=== PATIENT | female | born 1970 | race Caucasian/White ===

== ENCOUNTER → 2017-11-06 | Outpatient (CLI) | payer BC ==
[~2017-11-06] MED LIST: APRESOLINE25 MG PO; CELEXA20 MG PO; MOTRIN800 MG PO; NASONEX0.05 MG/AC NAS
== END ==
LOC: MAMMO 17:16
DX: Z12.31 Encounter for screening mammogram for malignant neoplasm of breast (principal)

== ENCOUNTER → 2017-11-13 | Outpatient (CLI) | payer BC | END | disposition home or self-care (01) | LOC: MAMMO 13:21 | DX: R92.8 Other abnormal and inconclusive findings on diagnostic imaging of breast (principal) ==

== ENCOUNTER → 2019-10-15 | Outpatient (CLI) | payer BC ==
[~2019-10-15] MED LIST changes: +NORVASC2.5 MG PO; +ZOLOFT25 MG PO
[2019-10-15 07:28] LABS: BASO % 0.4 % (0.0-1.0); EOS # 0.1 10*3/uL (0.0-0.4); EOS % 2.5 % (1.0-4.0); HEMATOCRIT 44.6 % (37.0-47.0); HEMOGLOBIN 15.4 g/dl (12.0-16.0); LYMPH # 1.2 10*3/uL (1.3-4.4); LYMPH % 25.8 % (27.0-41.0); MEAN CELL VOLUME 92.1 fl (81.0-99.0); MEAN CORPUSCULAR HGB 31.8 pg (27.0-31.0); MEAN CORPUSCULAR HGB CONC 34.5 g/dl (33.0-37.0); MEAN PLATELET VOLUME 9.2 fl (9.6-12.3); MONO # 0.4 10*3/uL (0.1-1.0); MONO % 9.1 % (3.0-9.0); NEUT # 2.9 10*3/uL (2.3-7.9); PLATELET COUNT AUTOMATED 276 10*3/uL (130-400); RED BLOOD COUNT 4.84 10*6/uL (4.10-5.10); RED CELL DISTRI WIDTH 11.9 % (0-14.5); WHITE BLOOD COUNT 4.7 10*3/uL (4.8-10.8)
[2019-10-15 08:07] LABS: ALBUMIN 3.9 gm/dl (3.1-4.5); ALKALINE PHOSPHATASE 121 U/L (45-117); BUN 15 mg/dl (7-24); CHLORIDE 109 mmol/L (98-107); CHOLESTEROL 190 mg/dL (<200); CREATININE 0.73 mg/dL (0.55-1.02); HDL CHOLESTEROL 52 mg/dl (40-60); LDL CHOLESTEROL 116 mg/dL (9-159); POTASSIUM 3.5 mmol/L (3.5-5.1); SGOT/AST 153 IU/L (3-35); SGPT/ALT 340 U/L (12-78); SODIUM 142 mmol/L (136-145); TOTAL PROTEIN 7.3 gm/dL (6.4-8.2); TRIGLYCERIDES 111 mg/dl (<150); VLDL CHOLESTEROL 22 mg/dL (6-40)
[2019-10-15 08:12] LABS: FREE T4 0.85 ng/dl (0.76-1.46)
[2019-10-15 09:04] LABS: VITAMIN D, 25-HYDROXY 76.2 ng/mL (30-100)
== END | disposition home or self-care (01) ==
LOC: LAB 06:14 → US 06:30
PROVIDERS: Internal Medicine
DX: R10.11 Right upper quadrant pain (principal); M54.6 Pain in thoracic spine; F17.200 Nicotine dependence, unspecified, uncomplicated; R06.02 Shortness of breath

== ENCOUNTER 2019-10-16 18:20 | Inpatient (IN) | payer BC ==
[~2019-10-16] VITALS: Ht 167.6 cm; Wt 77.2 kg
[~2019-10-16 18:20] MED LIST changes: -NORVASC2.5 MG PO; -ZOLOFT25 MG PO
--- NOTE | 2019-10-16 18:25 | NUR ---
Time: 1824 A 49 year old FEMALE admitted to under services of MARCY BURNETT MD. Pt. arrived via wheel chair from [place]. Chief complaint: DIRECT ADMIT FOR CHOLECYSTECTOMY. MARYANA CASTRO
[2019-10-16] MEDS ORDERED: ZOLOFT25 MG PO (18:40)
[2019-10-16] MEDS ORDERED: NORVASC2.5 MG PO (18:40)
[2019-10-16 20:00] VITALS: BP 130/70; BP 130/90
[2019-10-16 21:08] LABS: ALBUMIN 3.5 gm/dl (3.1-4.5); ALKALINE PHOSPHATASE 115 U/L (45-117); BILIRUBIN, DIRECT < 0.1 mg/dL (0.0-0.2); SGOT/AST 44 IU/L (3-35); SGPT/ALT 178 U/L (12-78); TOTAL PROTEIN 6.6 gm/dL (6.4-8.2)
[2019-10-17] VITALS: BP 132/81
--- NOTE | 2019-10-17 | NUR ---
PATIENT RESTING WITH EYES CLOSED. RESPIRATIONS EASY AND UNLABORED. CALL LIGHT WITHIN REACH. WILL MONITOR.
--- NOTE | 2019-10-17 02:00 | NUR ---
PATIENT RESTING WITH EYES CLOSED. RESPIRATIONS EASY AND UNLABORED. CALL LIGHT IN REACH. WILL MONITOR.
[2019-10-17 07:01] LABS: ALBUMIN 3.4 gm/dl (3.1-4.5); ALKALINE PHOSPHATASE 97 U/L (45-117); BILIRUBIN, DIRECT < 0.1 mg/dL (0.0-0.2); SGPT/ALT 164 U/L (12-78); TOTAL PROTEIN 6.7 gm/dL (6.4-8.2)
[2019-10-17 07:07] LABS: SGOT/AST 46 IU/L (3-35)
[2019-10-17 08:00] VITALS: BP 142/90
--- NOTE | 2019-10-17 09:00 | NUR ---
[employer] in to talk to patient. Patient states lives at home with her and 2 daughters. There are 2 steps in the home. Physician: Dr. Celeste Ruelas [facility] health services: none Patient's level of ADLs: INDEPENDENT Patient has working utilities: yes DME: none Follow-up physician's appointment after d/c: she prefers to make her own follow up appt after discharge Does patient want to access PORTAL?: no Discharge plan discussed with patient. She lives at home with her and 2 daughters. She is independent in her ADLs and ambulation. Discussed home health care services and she denies any home needs. When medically stable she will be discharged to home. She is scheduled for an ERCP today. Her will provide transportation on discharge. OFELIA GARNETT
--- NOTE | 2019-10-17 09:25 | NUR ---
PT TAKEN OFF FLOOR FOR MRCP.
[2019-10-17 12:00] VITALS: BP 136/88
--- NOTE | 2019-10-17 14:31 | NUR ---
Discharge instructions reviewed with patient/family. Patient receptive and verbalizes understanding. Follow-up care arranged. Written instructions given to patient/family. HEPLOCK DISCONTINUED. ADVISED PT TO SEE HIM IN OFFICE THIS WEEK TO SCHEDULE OUTPATIENT PROCEDURE. MARYANA CASTRO
[2019-10-21] MEDS ORDERED: MULTI-VITAMIN1 EACH PO (13:29)
[2019-10-21] MEDS ORDERED: VITAMIN D32000 UNI1 PO (13:29)
[2019-10-23] MEDS ORDERED: PERCOCET 5-3251 EACH PO (11:26)
== END 2019-10-17 14:30 | disposition home or self-care (01) | DRG 446 ==
LOC: 5E 18:20
PROVIDERS: Internal Medicine Gastroenterology; ADMIT Internal Medicine
DX: K80.80 Other cholelithiasis without obstruction (principal); F32.9 Major depressive disorder, single episode, unspecified; I10 Essential (primary) hypertension; R74.0 Nonspecific elevation of levels of transaminase and lactic acid dehydrogenase [LDH]; Z79.899 Other long term (current) drug therapy

== ENCOUNTER → 2019-10-23 | Day surgery (SDC) | payer BC ==
[2019-10-22 15:58] LABS: BILIRUBIN NEGATIVE (NEGATIVE); BLOOD NEGATIVE (NEGATIVE); CLARITY CLEAR (CLEAR); COLOR YELLOW (YELLOW); GLUCOSE NEGATIVE (NEGATIVE); KETONE NEGATIVE (NEGATIVE); LEUKO ESTERASE 1+ (NEGATIVE); NITRITE NEGATIVE (NEGATIVE); PH 5.5 (5.0-9.0); SPECIFIC GRAVITY >= 1.030 (1.005-1.030); UROBILINOGEN 0.2 E.U./dl (0.2-1.0)
[2019-10-22 16:05] LABS: BACTERIA 1+; EPITHELIAL CELLS TNTC; MUCOUS 2+
[2019-10-22 16:08] LABS: ACT PARTIAL THROMBO TIME 26.4 SECONDS (20.0-32.1)
[~2019-10-23] VITALS: Ht 167.6 cm; Wt 77.1 kg
[~2019-10-23] MED LIST changes: +MULTI-VITAMIN1 EACH PO; +NORVASC2.5 MG PO; +PERCOCET 5-3251 EACH PO; +VITAMIN D32000 UNI1 PO; +ZOLOFT25 MG PO
[2019-10-23 09:20] VITALS: BP 129/83
[2019-10-23 11:35] VITALS: BP 139/80
[2019-10-23 11:50] VITALS: BP 134/84
[2019-10-23 12:05] VITALS: BP 132/84
[2019-10-23 12:20] VITALS: BP 138/80
[2019-10-23 12:35] VITALS: BP 132/78
== END | disposition home or self-care (01) ==
LOC: SDC 10-21 08:45
PROVIDERS: Surgery
DX: K80.10 Calculus of gallbladder with chronic cholecystitis without obstruction (principal); I10 Essential (primary) hypertension; F32.9 Major depressive disorder, single episode, unspecified; F41.9 Anxiety disorder, unspecified; F17.210 Nicotine dependence, cigarettes, uncomplicated; Z79.899 Other long term (current) drug therapy; Z98.890 Other specified postprocedural states; Z82.49 Family history of ischemic heart disease and other diseases of the circulatory system

== ENCOUNTER → 2020-03-26 | Outpatient (CLI) | payer BC | END | disposition home or self-care (01) | LOC: US 12:06 | DX: M48.061 Spinal stenosis, lumbar region without neurogenic claudication (principal); M41.86 Other forms of scoliosis, lumbar region ==

== ENCOUNTER → 2020-11-16 | Outpatient (CLI) | payer BC | END | disposition home or self-care (01) | LOC: MAMMO 15:50 | PROVIDERS: ATTEND Internal Medicine | DX: Z12.31 Encounter for screening mammogram for malignant neoplasm of breast (principal); N63.24 Unspecified lump in the left breast, lower inner quadrant; N64.89 Other specified disorders of breast ==

== ENCOUNTER → 2020-12-01 | Outpatient (CLI) | payer BC ==
[2020-12-01 10:38] LABS: BASO % 0.2 % (0.0-1.0); EOS % 0.2 % (1.0-4.0); HEMATOCRIT 45.6 % (37.0-47.0); LYMPH # 1.4 10*3/uL (1.3-4.4); LYMPH % 23.7 % (27.0-41.0); MEAN CELL VOLUME 90.5 fl (81.0-99.0); MEAN CORPUSCULAR HGB CONC 34.2 g/dl (33.0-37.0); MEAN PLATELET VOLUME 9.5 fl (9.6-12.3); MONO # 0.4 10*3/uL (0.1-1.0); MONO % 6.4 % (3.0-9.0); NEUT # 4.1 10*3/uL (2.3-7.9); NEUT % 69.2 % (47.0-73.0); PLATELET COUNT AUTOMATED 311 10*3/uL (130-400); RED BLOOD COUNT 5.04 10*6/uL (4.10-5.10); RED CELL DISTRI WIDTH 12.1 % (0-14.5)
[2020-12-01 11:10] LABS: ALKALINE PHOSPHATASE 88 U/L (45-117); BUN 17 mg/dl (7-24); CHLORIDE 105 mmol/L (98-107); CHOLESTEROL 222 mg/dL (<200); CREATININE 0.73 mg/dL (0.55-1.02); FREE T4 0.89 ng/dl (0.76-1.46); HDL CHOLESTEROL 50 mg/dl (40-60); LDL CHOLESTEROL 150 mg/dL (9-159); POTASSIUM 3.6 mmol/L (3.5-5.1); SGOT/AST 17 IU/L (3-35); SGPT/ALT 23 U/L (12-78); SODIUM 139 mmol/L (136-145); TOTAL PROTEIN 7.3 gm/dL (6.4-8.2); TRIGLYCERIDES 108 mg/dl (<150); VLDL CHOLESTEROL 22 mg/dL (6-40)
[2020-12-01 14:31] LABS: VITAMIN D, 25-HYDROXY 30.8 ng/mL (30-100)
== END | disposition home or self-care (01) ==
LOC: LAB 09:46 → US 10:00 → MAMMO 10:00
PROVIDERS: ATTEND Internal Medicine
DX: N60.02 Solitary cyst of left breast (principal); I10 Essential (primary) hypertension; E55.9 Vitamin D deficiency, unspecified; Z13.1 Encounter for screening for diabetes mellitus; Z13.21 Encounter for screening for nutritional disorder; Z13.220 Encounter for screening for lipoid disorders; Z00.00 Encounter for general adult medical examination without abnormal findings

== ENCOUNTER → 2022-01-02 | Outpatient (CLI) | payer BC ==
[~2022-01-02] MED LIST changes: +MELOXICAM15 MG PO; +METOPROLOL25 MG PO; +TRAZODONE100 MG PO
== END | disposition home or self-care (01) ==
LOC: CARD 00:01
PROVIDERS: ATTEND Internal Medicine
DX: R07.89 Other chest pain (principal); R06.02 Shortness of breath

== ENCOUNTER → 2023-02-03 | Outpatient (CLI) | payer OTHER ==
[2023-02-03 08:55] LABS: BASO % 0.4 % (0.0-1.0); EOS # 0.1 10*3/uL (0.0-0.4); EOS % 1.2 % (1.0-4.0); HEMATOCRIT 44.2 % (37.0-47.0); LYMPH # 1.4 10*3/uL (1.3-4.4); MEAN CELL VOLUME 87.9 fl (81.0-99.0); MEAN CORPUSCULAR HGB 30.6 pg (27.0-31.0); MEAN CORPUSCULAR HGB CONC 34.8 g/dl (33.0-37.0); MEAN PLATELET VOLUME 9.4 fl (9.6-12.3); MONO # 0.4 10*3/uL (0.1-1.0); MONO % 7.5 % (3.0-9.0); NEUT # 3.2 10*3/uL (2.3-7.9); NEUT % 62.5 % (47.0-73.0); PLATELET COUNT AUTOMATED 289 10*3/uL (130-400); RED BLOOD COUNT 5.03 10*6/uL (4.10-5.10); RED CELL DISTRI WIDTH 12.1 % (0-14.5); WHITE BLOOD COUNT 5.1 10*3/uL (4.8-10.8)
[2023-02-03 09:15] LABS: ALKALINE PHOSPHATASE 96 U/L (46-116); BUN 17 mg/dl (9-23); CHLORIDE 108 mmol/L (98-107); CHOLESTEROL 238 mg/dL (<200); LDL CHOLESTEROL 165 mg/dL (9-159); POTASSIUM 3.7 mmol/L (3.4-5.1); SGPT/ALT 22 U/L (10-49); THYROID STIM HORMONE (HS) 1.732 uIU/ml (0.550-4.780); TRIGLYCERIDES 170 mg/dl (<150)
[2023-02-03 10:08] LABS: VITAMIN D, 25-HYDROXY 37.5 ng/mL (30-100)
== END | disposition home or self-care (01) ==
LOC: LAB 08:16
PROVIDERS: ATTEND Internal Medicine
DX: I10 Essential (primary) hypertension (principal); M79.10 Myalgia, unspecified site; F33.1 Major depressive disorder, recurrent, moderate; F41.1 Generalized anxiety disorder

== ENCOUNTER → 2023-02-20 | Outpatient (CLI) | payer OTHER | END | disposition home or self-care (01) | LOC: RAD 17:13 | PROVIDERS: ATTEND Internal Medicine | DX: R09.81 Nasal congestion (principal); R05.9 Cough, unspecified ==

== ENCOUNTER → 2023-03-27 | Outpatient (CLI) | payer OTHER | END | disposition home or self-care (01) | LOC: MAMMO 03-13 16:00 | PROVIDERS: ATTEND Internal Medicine | DX: Z12.31 Encounter for screening mammogram for malignant neoplasm of breast (principal); N63.20 Unspecified lump in the left breast, unspecified quadrant; N60.02 Solitary cyst of left breast ==

== ENCOUNTER → 2023-12-14 | Outpatient (CLI) | payer OTHER | END | disposition home or self-care (01) | LOC: RAD 12-10 07:30 | PROVIDERS: ATTEND Internal Medicine | DX: Z78.0 Asymptomatic menopausal state (principal); E55.9 Vitamin D deficiency, unspecified; Z79.899 Other long term (current) drug therapy ==

== ENCOUNTER → 2025-01-05 | Outpatient (CLI) | payer OTHER ==
[2025-01-05 08:01] LABS: BASO % 0.2 % (0.0-1.0); EOS # 0.1 10*3/uL (0.0-0.4); EOS % 1.2 % (1.0-4.0); HEMATOCRIT 43.3 % (37.0-47.0); MEAN CELL VOLUME 90.6 fl (81.0-99.0); MEAN CORPUSCULAR HGB 30.5 pg (27.0-31.0); MEAN CORPUSCULAR HGB CONC 33.7 g/dl (33.0-37.0); MEAN PLATELET VOLUME 9.5 fl (9.6-12.3); MONO # 0.5 10*3/uL (0.1-1.0); MONO % 8.3 % (3.0-9.0); PLATELET COUNT AUTOMATED 233 10*3/uL (130-400); RED BLOOD COUNT 4.78 10*6/uL (4.10-5.10); RED CELL DISTRI WIDTH 12.3 % (0-14.5)
[2025-01-05 09:03] LABS: ALKALINE PHOSPHATASE 111 U/L (46-116); BUN 12 mg/dl (9-23); CHLORIDE 105 mmol/L (98-107); CHOLESTEROL 121 mg/dL (<200); FREE T4 0.89 ng/dl (0.89-1.76); LDL CHOLESTEROL 63 mg/dL (9-159); SGPT/ALT 31 U/L (5-49); TRIGLYCERIDES 108 mg/dl (<150)
[2025-01-05 09:07] LABS: VITAMIN D, 25-HYDROXY 91.7 ng/mL (30-100)
== END | disposition home or self-care (01) ==
LOC: LAB 07:44
PROVIDERS: ATTEND Internal Medicine
DX: I10 Essential (primary) hypertension (principal); E78.2 Mixed hyperlipidemia; R53.83 Other fatigue; E53.9 Vitamin B deficiency, unspecified; E55.9 Vitamin D deficiency, unspecified

== ENCOUNTER → 2025-01-13 | Outpatient (CLI) | payer OTHER | END | disposition home or self-care (01) | LOC: MAMMO 00:45 | PROVIDERS: ATTEND Internal Medicine | DX: Z12.31 Encounter for screening mammogram for malignant neoplasm of breast (principal); R92.323 Mammographic fibroglandular density, bilateral breasts ==